=== PATIENT | male | born 1945 | race Caucasian/White ===

== ENCOUNTER 2017-03-04 21:14 | Inpatient (IN) ==
[2017-03-04 21:25] VITALS: BMI 27.6
[2017-03-04] MEDS ORDERED: SODIUM CHLORIDE 1,000 ML IV STA ×2 (21:35)
[2017-03-04] MEDS ORDERED: ZOFRAN 4 MG/2 ML IVP STA (21:36)
--- NOTE | 2017-03-04 22:07 | CT ---
Exam: CT of the chest without contrast History: Cough Technique: [address] of the chest without intravascular contrast FINDINGS: Lung windows show minor nodular infiltrate in the posterior right lower lobe. No consolid ative opacities. Atherosclerotic calcification of the aorta and coronary arteries. The ascending th oracic aorta maximum diameter is 4 cm. No pathologic lymph node enlargement or abundance. No acute chest wall abnormalities are seen. No acute findings of the upper abdomen. Nonobstructing calculus in the right kidney. Impression: 1. Minor tree-in-bud nodular infiltrate in the posterior right lower lobe. No consolidative changes . No acute findings of the chest otherwise. 2. 4 cm ascending thoracic aorta.
--- NOTE | 2017-03-04 22:08 | CT ---
EXAM: CT scan of the abdomen and pelvis without contrast HISTORY: Vomiting TECHNIQUE: Imaging of the abdomen and pelvis was performed without contrast. 3 mm thin axial images and coronal and sagittal reconstructions were provided for interpretation. Comparison CT scan of the abdomen and pelvis dated 02/04/2011. FINDINGS: The liver, spleen, pancreas, adrenal glands and kidneys appear normal. The proximal urete rs are normal size. Small nonobstructing calculi are seen within the calyces of the kidneys. The sm all bowel loops are normal caliber. There is no free air. The appendix was not well seen. No defini te inflammatory changes are seen in the right lower quadrant. No retroperitoneal abnormalities are se en. Gallstones are identified. The helical images obtained through the pelvis demonstrate a normal appearance of the rectum, urinary bladder. There is no free fluid seen within the pelvis. There is a small hernia seen within the lef t inguinal canal containing a loop of small bowel. The hernia sac measures approximately 2.8 cm AP , 3.3 cm transverse, approximately 3.7 cm in height. Patchy nodular opacities are seen in the depende nt right lung base. The lung bases are otherwise clear. No lytic or blastic lesions are seen within the osseous structures. IMPRESSION: No evidence for small bowel obstruction or acute inflammatory change seen within the abd omen and pelvis. Possible early pneumonia seen in the right lung base. Nonobstructing nephrolithiasis seen within the kidneys bilaterally. There is a small hernia seen within the left inguinal canal containing a loop of small bowel. The fin dings are not causing obstruction. Cholelithiasis.
[2017-03-05] MEDS ORDERED: ROCEPHIN 1 GM in SODIUM CHLORIDE 50 ML IV STA (00:27)
--- NOTE | 2017-03-05 00:32 | ED.PDOC ---
General ED Provider: Dr. YANETH COLBERT-ER Chief Complaint: Cough Stated Complaint: i cant keep anything down--im vomitng and having diarrhea and im coughing Time Seen by Physician: 21:15 Mode of Arrival: Walk-In Information Source: Patient, Family Exam Limitations: No limitations Primary Care Provider: YANETH COLBERT Nursing and Triage Documentation Reviewed and Agree: Yes Reviewed sepsis parameters & appropriate labs ordered?: Yes System Inflammatory Response Syndrome: Not Applicable Sepsis Protocol: For patient's 13 years and over: Temp is 96.8 and below OR 101 and greater Pulse >90 BPM Resp >20/minute Acutely Altered Mental Status Are patient's symptoms suggestive of a new infection, such as: -Pneumonia -Skin, Soft Tissue -Endocarditis -UTI -Bone, Joint Infection -Implantable Device -Acute Abdominal Infection -Wound Infection -Meningitis -Blood Stream Catheter Infection -Unknown Respiratory Complaint Exam - Respiratory Complaint/Exam Onset/Duration: im coughing Symptoms Are: Still present Timing: Intermittent Initial Severity: Mild Current Severity: Moderate Location: Chest Character: Reports: Non-productive cough Aggravating: Reports: URI Associated Signs and Symptoms: Reports: Fever, URI, Nasal congestion, Decreased oral intake, Increased thirst. Denies: Rapid breathing, Dyspnea, Chills, Chest pain, Pleuritic chest pain, Wheezing, Hemoptysis, Dizziness, Calf pain, Calf swelling, Edema, Hoarseness, Sinus discomfort, Vomiting, Sore throat, Weight loss, Increased appetite, Increased urination History of Healthcare-Acquired Pneumonia: Admit w/in last 30 days Status Asthmaticus Risk Factors: Reports: None Home Oxygen Use: No Recent Stress Test: No Recent Echo/LV Function: No Current Antibiotic Use: No Current Asthma Medication Use: No Respiratory Distress: None Inadequate Respiratory Effort: No Dysphagia Present: No Stridor Present: No JVD Present: No Accessory Muscle Use: No Retractions: Not Present Diminished Breath Sounds: No Sinus Tenderness: None Grunting Respirations: No Kussmaul Respirations: No Differential Diagnoses: Pneumonia, Influenza, Other Non-Traumatic Chest Pain Syncope: EKG Performed Review of Systems - Review Of Systems Constitutional: Reports: Chills, Fever, Weakness Eyes: Reports: No symptoms Ears, Nose, Mouth, Throat: Reports: No symptoms Respiratory: Reports: Cough Cardiac: Reports: No symptoms GI: Reports: Diarrhea, Nausea, Vomiting : Reports: No symptoms Musculoskeletal: Reports: No symptoms Skin: Reports: No symptoms Neurological: Reports: No symptoms Endocrine: Reports: No symptoms Hematologic/Lymphatic: Reports: No symptoms All Other Systems: Reviewed and Negative Past Medical History - Past Medical History Previously Healthy: Yes Endocrine: Reports: DM 2, Dyslipidemia Cardiovascular: Reports: Hypertension Respiratory: Reports: None Hematological: Reports: None Gastrointestinal: Reports: None Genitourinary: Reports: None Neuro/Psych: Reports: None Musculoskeletal: Reports: None Cancer: Reports: None - Surgical History General Surgical History: Reports: Other ( repair as child.) - Family History Family History: Reports: None - Social History Smoking Status: Never smoker Hx Substance Use: No Alcohol Screening: Occasionally - Immunizations Tetanus Shot up to Date: Yes Physical Exam - Physical Exam Appearance: Well-appearing, No pain distress, Well-nourished Eyes: SIERRA, EOMI, Conjunctiva clear ENT: Rhinorrhea Neck: Supple Respiratory: Airway patent Cardiovascular: RRR, Pulses normal, No rub, No murmur GI/: Soft Musculoskeletal: Normal strength, ROM intact, No edema, No calf tenderness Skin: Warm Neurological: Sensation intact, Motor intact, Reflexes intact, Cranial nerves intact, Alert, Oriented Psychiatric: Affect appropriate, Mood appropriate Interpretation - Radiology Interpretation Radiology Interpretation By: Radiologist Radiology Results: Positive Exam Interpreted: CT Scan - EKG Interpretation Time of EKG #1: 00:33 Rate: Tachy Rhythm: Sinus Ectopy: None [place]: NL ST Segment: Normal Interpretation: nsr Re-Evaluation - Re-Evaluation Time of Re-Evaluation: 00:34 Status: Unchanged Vital Signs Stable: Yes Pain Level: 3 Appearance: NAD Lungs: Clear Skin: Warm and Dry Neuro: Alert and Oriented X3 CV: RRR Physician Notification - Case Discussed Physician Notified: dr sunshine Time of Notification: 02:04 Critical Care Note - Critical Care Note Total Time (mins): 0 Course - Course Hematology/Chemistry: 03/04/17 21:55 03/04/17 21:55 Orders, Labs, Meds: Lab Review 03/04/17 03/04/17 03/04/17 21:34 21:35 21:55 WBC 7.23 RBC 4.11 L Hgb 13.2 L Hct 38.8 L MCV 94.4 H MCH 32.1 H MCHC 34.0 RDW Coeff of Hany 13.3 Plt Count 142 Immature Gran % (Auto) 0.1 Neut % (Auto) 89.8 Lymph % (Auto) 3.7 L Vent[place] % (Auto) 4.3 Eos % (Auto) 1.5 Baso % (Auto) 0.6 Immature Gran # (Auto) 0.0 Neut # 6.5 Lymph # 0.3 L [place] # 0.3 L Eos # 0.1 Baso # 0.0 Puncture Site Lb O2 Saturation 95.0 ABG pH 7.375 ABG pCO2 36.2 ABG pO2 76.0 L ABG HCO3 21.2 L ABG Total CO2 22 ABG Base Excess -4 L Juan Luis Test + FiO2 % 21.0 Sodium Potassium Chloride Carbon Dioxide Anion Gap BUN Creatinine Estimated GFR (MDRD) BUN/Creatinine Ratio Glucose Calcium Total Bilirubin AST ALT Alkaline Phosphatase Total Protein Albumin Globulin Albumin/Globulin Ratio Urine Color Urine Clarity Urine pH Ur Specific Hext Urine Protein Urine Glucose (UA) Urine Ketones Urine Blood Urine Nitrite Urine Bilirubin Urine Urobilinogen Ur Leukocyte Esterase Influenza A (Rapid) Negative by naat Influenza B (Rapid) Negative by naat 03/04/17 03/04/17 21:55 23:57 WBC RBC Hgb Hct MCV MCH MCHC RDW Coeff of Hany Plt Count Immature Gran % (Auto) Neut % (Auto) Lymph % (Auto) Ventura % (Auto) Eos % (Auto) Baso % (Auto) Immature Gran # (Auto) Neut # Lymph # Ventura # Eos # Baso # Puncture Site O2 Saturation ABG pH ABG pCO2 ABG pO2 ABG HCO3 ABG Total CO2 ABG Base Excess Juan Luis Test FiO2 % Sodium 143 Potassium 4.1 Chloride 110 H Carbon Dioxide 23 Anion Gap 14.1 BUN 18 Creatinine 1.01 Estimated GFR (MDRD) 72.00 BUN/Creatinine Ratio 17.82 Glucose 191 H Calcium 9.1 Total Bilirubin 0.7 AST 20 ALT 25 Alkaline Phosphatase 68 Total Protein 7.4 Albumin 3.7 Globulin 3.7 Albumin/Globulin Ratio 1.00 Urine Color Yellow Urine Clarity Clear Urine pH 6.0 Ur Specific Hext 1.020 Urine Protein Negative Urine Glucose (UA) Negative Urine Ketones Trace Urine Blood Negative Urine Nitrite Negative Urine Bilirubin Negative Urine Urobilinogen 0.2 Ur Leukocyte Esterase Negative Influenza A (Rapid) Influenza B (Rapid) Orders Category Date Time Status ABG DRAW REQUEST Stat CARDIO 03/04/17 21:35 Completed EKG-(ED ONLY) Stat CARDIO 03/04/17 21:34 Completed ED IV/MEDIPORT/POWERPORT .ONCE EMERGENCY 03/04/17 21:35 Active ABG Stat LAB 03/04/17 21:34 Completed BLOOD CULTURE (ED ONLY) Stat LAB 03/04/17 21:55 Received CBC W/ AUTO DIFF Stat LAB 03/04/17 21:55 Completed COMPREHENSIVE METABOLIC PANEL Stat LAB 03/04/17 21:55 Completed FLU A/B MOLECULAR Stat LAB 03/04/17 21:35 Completed MOLECULAR GROUP A STREP Stat LAB 03/04/17 21:35 Completed URINALYSIS C & S IF INDICATED Stat LAB 03/04/17 23:57 Completed 0.9 % Sodium Chloride [Saline Flush] MEDS 03/04/17 21:35 Ordered 1 syr IVF PRN PRN Ceftriaxone Sodium [Rocephin] MEDS 03/05/17 00:59 Discontinued 1 gm .ROUTE .STK-MED ONE Ceftriaxone Sodium [Rocephin] 1 gm MEDS 03/05/17 00:27 Discontinued 0.9 % Sodium Chloride [Sodium Chloride] 50 ml IV ONCE Hydrocodone Bit/Acetaminophen [Newell 5-325] MEDS 03/05/17 01:00 Discontinued 1 tab PO ONCE STA Ondansetron HCl/Pf [Zofran 4 mg/2 ml] MEDS 03/04/17 21:36 Discontinued 4 mg IVP ONCE STA Sodium Chloride 0.9% [Sodium Chloride] 1,000 ml MEDS 03/05/17 00:56 Active IV 50 mls/hr Sodium Chloride 0.9% [Sodium Chloride] 1,000 ml MEDS 03/04/17 21:35 Discontinued IV BOLUS Sodium Chloride 0.9% [Sodium Chloride] 1,000 ml MEDS 03/04/17 21:[address] ABDOMEN/PELVIS WO CONTRAST Stat RADS 03/04/17 21:[address] CHEST W/O CONTRAST Stat RADS 03/04/17 21:36 Completed Medications Generic Name Dose Route Start Last Admin Trade Name Freq PRN Reason Stop Dose Admin Sodium Chloride 1,000 mls @ 50 mls/hr 03/05/17 00:56 03/05/17 01:04 Sodium Chloride IV 03/05/17 20:55 50 mls/hr .Q20H STA Administration Sodium Chloride 1 syr 03/04/17 21:35 03/04/17 22:16 Saline Flush IVF 1 syr PRN PRN Administration To flush IV Discontinued Medications Generic Name Dose Route Start Last Admin Trade Name Fausto PRN Reason Stop Dose Admin Acetaminophen/Hydrocodone Bitart 1 tab 03/05/17 01:00 03/05/17 01:10 Newell 5-325 PO 03/05/17 01:01 1 tab ONCE STA Administration Sodium Chloride 1,000 mls @ 1,000 mls/hr 03/04/17 21:35 03/04/17 23:30 Sodium Chloride IV 03/04/17 22:34 1,000 mls/hr BOLUS STA Administration Sodium Chloride 1,000 mls @ 1,000 mls/hr 03/04/17 21:35 03/04/17 22:16 Sodium Chloride IV 03/04/17 22:34 1,000 mls/hr BOLUS STA Administration Ceftriaxone Sodium 1 gm/ 50 mls @ 75 mls/hr 03/05/17 00:27 03/05/17 01:06 Sodium Chloride IV 03/05/17 01:06 75 mls/hr ONCE STA Administration Ondansetron HCl 4 mg 03/04/17 21:36 03/04/17 22:17 Zofran 4 Mg/2 Ml IVP 03/04/17 21:37 4 mg ONCE STA Administration Vital Signs: Temp Pulse Resp BP Pulse Ox 03/04/17 23:54 99.6 F 03/04/17 21:14 100.4 F H 117 H 20 132/77 94 L Departure - Departure Time of Disposition: 00:34 Disposition: ADMITTED INPATIENT Discharge Problem: Dehydration Pneumonia Qualifiers: Pneumonia type: due to unspecified organism Laterality: right Lung location: lower lobe of lung Qualified Code(s): J18.1 - Lobar pneumonia, unspecified organism Diarrhea Qualifiers: Diarrhea type: unspecified type Qualified Code(s): R19.7 - Diarrhea, unspecified Instructions: Pneumonitis (ED) Condition: Stable Pt referred to PMD for follow-up: Yes IPMP verified?: No Allergies/Adverse Reactions: Allergies No Known Allergies Allergy (Verified 03/04/17 21:24) Home Medications: Ambulatory Orders 1 [Unobtainable] 03/04/17 Transfer Form Completed: Yes Disposition Discussed With: Patient, Family
[2017-03-05] MEDS ORDERED: SODIUM CHLORIDE 1,000 ML IV STA (00:56)
[2017-03-05] MEDS ORDERED: ROCEPHIN ONE (00:59)
[2017-03-05] MEDS ORDERED: NORCO 5-325 PO STA (01:00)
[2017-03-05] MEDS ORDERED: HUMULIN R SUBCUT PRN (02:13)
[2017-03-05] MEDS ORDERED: ZOFRAN 4 MG/2 ML IVP PRN (02:14)
[2017-03-05] MEDS ORDERED: VANCOMYCIN 1,000 MG in SODIUM CHLORIDE 200 ML IV SCH (02:30)
[2017-03-05] MEDS ORDERED: XOPENEX 0.63 MG NEB SCH (03:00)
[2017-03-05] MEDS: XOPENEX 0.63 MG NEB SCH ×3 (03:31→21:00)
[2017-03-05] MEDS: FLAGYL PO SCH ×4 (03:41→20:53)
[2017-03-05] MEDS: SODIUM CHLORIDE 1,000 ML IV SCH ×2 (03:42→15:19)
[2017-03-05] MEDS: HUMULIN R SUBCUT PRN ×3 (05:38→17:30)
[2017-03-05] MEDS: LOVENOX SUBCUT SCH (08:53)
[2017-03-05] MEDS: NORCO 7.5-325 PO PRN ×2 (09:00→17:58)
[2017-03-05] MEDS ORDERED: NON-FORMULARY MEDICATION (Metformin Hcl [Metformin Hcl] 1,000 MG) PO SCH (17:00)
[2017-03-05] MEDS: FLOMAX PO SCH (17:22)
[2017-03-05] MEDS: GLUCOPHAGE PO SCH (17:22)
[2017-03-05] MEDS: VANCOMYCIN 1 GM in SODIUM CHLORIDE 250 ML IV SCH (17:51)
[2017-03-05] MEDS ORDERED: POTASSIUM CHLORIDE 20 MEQ VIAL-ADDITIVE ONLY 20 MEQ, INFUVITE ADULT 10 ML in SODIUM CHL... IV SCH (20:00)
[2017-03-05] MEDS ORDERED: OXYCODONE PO PRN (20:35)
[2017-03-05] MEDS: ROCEPHIN 1 GM in SODIUM CHLORIDE 50 ML IV SCH (20:48)
[2017-03-05] MEDS: TIMOPTIC 0.5% OPTH OP SCH (20:49)
[2017-03-05] MEDS: BRIMONIDINE TARTRATE OP SCH (20:49)
[2017-03-05] MEDS: CRESTOR PO SCH (20:52)
[2017-03-05] MEDS ORDERED: ROSUVASTATIN CALCIUM 20 MG PO SCH (21:00)
[2017-03-05] MEDS: NEURONTIN PO SCH (22:05)
[2017-03-05] MEDS: LANTUS SUBCUT SCH (22:05)
[2017-03-05] MEDS ORDERED: POTASSIUM CHLORIDE 20 MEQ VIAL-ADDITIVE ONLY IV ONE (23:23)
[2017-03-05] MEDS ORDERED: INFUVITE ADULT IV ONE (23:24)
[2017-03-06] MEDS: XOPENEX 0.63 MG NEB SCH ×3 (04:50→20:00)
[2017-03-06] MEDS: VANCOMYCIN 1 GM in SODIUM CHLORIDE 250 ML IV SCH ×2 (05:38→17:08)
[2017-03-06] MEDS: SYNTHROID PO SCH (05:38)
[2017-03-06] MEDS: FLAGYL PO SCH ×3 (08:29→20:16)
[2017-03-06] MEDS: GLUCOPHAGE PO SCH ×2 (08:30→17:07)
[2017-03-06] MEDS: ASPIRIN CHEWABLE PO SCH (08:30)
[2017-03-06] MEDS: ZOLOFT PO SCH (08:30)
[2017-03-06] MEDS: COZAAR PO SCH (08:30)
[2017-03-06] MEDS: BRIMONIDINE TARTRATE OP SCH ×2 (08:31→20:15)
[2017-03-06] MEDS: INFUVITE ADULT 10 ML in SODIUM CHLORIDE 0.45%-KCL 20 MEQ 1,000 ML IV SCH ×2 (08:32→14:13)
[2017-03-06] MEDS: FLONASE NAS SCH (08:32)
[2017-03-06] MEDS: TIMOPTIC 0.5% OPTH OP SCH ×2 (08:32→20:15)
[2017-03-06] MEDS: NEURONTIN PO SCH ×3 (08:34→20:15)
[2017-03-06] MEDS: LOVENOX SUBCUT SCH (08:34)
[2017-03-06] MEDS ORDERED: NON-FORMULARY MEDICATION (Losartan Potassium 25 MG) PO SCH (09:00)
[2017-03-06] MEDS ORDERED: SERTRALINE HCL 50 MG PO SCH (09:00)
[2017-03-06] MEDS: HUMULIN R SUBCUT PRN ×2 (12:03→17:05)
[2017-03-06] MEDS: FLOMAX PO SCH (17:07)
[2017-03-06] MEDS: LANTUS SUBCUT SCH (20:14)
[2017-03-06] MEDS: CRESTOR PO SCH (20:15)
[2017-03-06] MEDS: ROCEPHIN 1 GM in SODIUM CHLORIDE 50 ML IV SCH (20:18)
[2017-03-07] MEDS: VANCOMYCIN 1 GM in SODIUM CHLORIDE 250 ML IV SCH ×2 (05:33→18:46)
[2017-03-07] MEDS: SYNTHROID PO SCH (05:33)
[2017-03-07] MEDS: HUMULIN R SUBCUT PRN ×3 (05:47→20:07)
[2017-03-07] MEDS: XOPENEX 0.63 MG NEB SCH ×3 (06:01→20:53)
--- NOTE | 2017-03-07 08:20 | HP ---
CHIEF COMPLAINT: Cough, nausea, vomiting and diarrhea SOURCE OF HISTORY: Patient and notes from the emergency room HISTORY OF PRESENT ILLNESS: The patient about three days prior to presentation to the emergency room had been experiencing. This was later followed by nausea and vomiting as well as diarrhea. He also had a low grade temperature with chills, shaking chills not just chilly. He hadn't been drinking enough and feels dehydrated because of the vomiting and diarrhea and claimed that he could not keep anything down. The patient was discharged from [facility] 02/14/17 because of viral influenza A. He was kept in the hospital for 4 days. The diagnosis then was bronchial pneumonia plus influenza A. Chest x-ray showed some minimal tree-in- bud nodular infiltrate right lower lobe described as minor. He was then admitted to the hospital for further treatment. PAST PERSONAL HISTORY: Diabetes mellitus questionable type. This patient is taking oral medications as well as insulin. The patient has type probably 1 1/2 or 3 (JONI). History of myocardial infarction Cardiac catheterization with 3 stents applied History of depression Anxiety PTSD Pneumonia Pyloristenosis, operated as an . 5 stents that were deployed I don't know whether just one occasion FAMILY HISTORY: Unknown SOCIAL HISTORY: The patient is retired from the arm forces services and goes to the [facility] for medical care. The [facility] at this time is on overflow. He is . Never did smoker. MEDICATIONS: Still unknown. We are giving patient sliding scale with regular insulin at this time until we get hold of the medications. He did not bring his medication and we are trying to retrieve it. Trying to get to the portal however the [place] the password is in accepted by the Portal. ALLERGIES: No known drug allergies. REVIEW OF SYSTEMS: CONSTITUTIONAL: Appearance is good. Episode of chills with some weakness because of the nausea and vomiting plus the fever YARN MAN: No headache. No syncopal episode, no seizure disorder or problem VISUAL: Denies any blurred vision, double vision or transient loss of vision. AUDITORY: Hearing is adequate. Denies any tinnitus, pain or drainage. RESPIRATORY: The patient has cough no cyanosis and no significant respiratory problems except the cough. He is not dyspneic or tachypneic and no cyanosis. CARDIOVASCULAR: The patient denied any chest pain on admission. He did have a transient pain in the chest last night it is in the lower area at the costal margin across the chest. This was not accompanied by any symptoms such as diaphoresis or exacerbated weakness. GASTROINTESTINAL: The patient is not able to keep any thing down because of the nausea, vomiting and diarrhea. GENITOURINARY: Denies any pain or frequency of urination. MUSCULOSKELETAL: The patient does not have any significant joint pains ENDOCRINE: The patient does not have polyuria or polydipsia. He is diabetic and probably 1 1/2 or 3. INTEGUMENT: Denies any rash or pleuritis HEMATOLOGIC: No history of prolonged bleeding PSYCHIATRIC: Affect appears to be normal. The patient does have a diagnosis of PTSD probably stemming from the service. PHYSICAL EXAMINATION: GENERAL: 72 year old male admitted to the hospital by the emergency room because of cough, nausea, vomiting and diarrhea with chills. VITAL SIGNS: Temperature 100.4, pulse 117, blood pressure 132/77, respiratory rate 20 and oxygen saturation 94% at room air. 182 pounds. HEAD: Unremarkably, scalp not dermitis. FACE: Symmetrical and equal with no facial weakness. No remarkably tenderness to pressure. Palpation in the frontally maxillary sinus areas. EYES: Pupils equal/reactive to light. Conjunctivae not pale. Sclerae not icteric. MOUTH: Unremarkably THROAT: No inflammation, tumors or exudate. NECK: No masses. No bruit. No tenderness. No rigidity. CHEST: Symmetrical and equal with good expansion LUNGS: Breath sounds are heard in both sides and clear. HEART: Audible and regular with good tones. No murmurs. ABDOMEN: Flat, soft with no remarkably tenderness. No guarding, no masses no bruit. EXTERNAL GENITALIA: Not examined RECTAL: Not performed LOWER EXTREMITIES: Symmetrical and equal with no significant edema. Anterior tibials are palpable, posterior tibials are not found UPPER EXTREMITIES: Symmetrical and equal ASSESSMENT: 1. Acute gastroenteritis probably viral 2. Right lower lobe infiltrate maybe pneumonia 3. History of influenza A, recent discharge 02/14/17 from [facility] 4. Diabetes mellitus type 1 1/2 5. PTSD 6. Depression 7. Coronary artery disease post [facility] with stents x5 8. Peripheral arterial disease 9. Absent posterior tibials The emergency room felt that maybe he has Clostridium difficile problems. This patient was given Flagyl as well as Vancomycin. The patient had not had a bowel movement since admission from the emergency room. I don't know if this patient does have clostridium problems or maybe just a plan acute gastroenteritis probably viral. MTDD
[2017-03-07] MEDS: FLONASE NAS SCH (08:53)
[2017-03-07] MEDS: BRIMONIDINE TARTRATE OP SCH ×2 (08:53→20:07)
[2017-03-07] MEDS: TIMOPTIC 0.5% OPTH OP SCH ×2 (08:53→20:06)
[2017-03-07] MEDS: LOVENOX SUBCUT SCH (08:53)
[2017-03-07] MEDS: FLAGYL PO SCH ×2 (08:55→15:11)
[2017-03-07] MEDS: GLUCOPHAGE PO SCH ×2 (08:55→16:47)
[2017-03-07] MEDS: ASPIRIN CHEWABLE PO SCH (08:55)
[2017-03-07] MEDS: COZAAR PO SCH (08:56)
[2017-03-07] MEDS: NEURONTIN PO SCH ×3 (08:56→20:06)
[2017-03-07] MEDS: ZOLOFT PO SCH (08:56)
[2017-03-07] MEDS: FLOMAX PO SCH (16:47)
[2017-03-07] MEDS: INFUVITE ADULT 10 ML in SODIUM CHLORIDE 0.45%-KCL 20 MEQ 1,000 ML IV SCH ×2 (18:45→18:46)
[2017-03-07] MEDS: OMNICEF PO SCH (20:06)
[2017-03-07] MEDS: CRESTOR PO SCH (20:06)
[2017-03-07] MEDS: LANTUS SUBCUT SCH (20:07)
[2017-03-07] MEDS ORDERED: AVELOX PO SCH (21:00)
[2017-03-08] MEDS: XOPENEX 0.63 MG NEB SCH (05:14)
[2017-03-08] MEDS: SYNTHROID PO SCH (05:45)
[2017-03-08] MEDS: BRIMONIDINE TARTRATE OP SCH (08:23)
[2017-03-08] MEDS: TIMOPTIC 0.5% OPTH OP SCH (08:23)
[2017-03-08] MEDS: FLONASE NAS SCH (08:23)
[2017-03-08] MEDS: GLUCOPHAGE PO SCH (08:24)
[2017-03-08] MEDS: NEURONTIN PO SCH (08:24)
[2017-03-08] MEDS: ZOLOFT PO SCH (08:24)
[2017-03-08] MEDS: OMNICEF PO SCH (08:24)
[2017-03-08] MEDS: ASPIRIN CHEWABLE PO SCH (08:24)
[2017-03-08] MEDS: COZAAR PO SCH (08:25)
[2017-03-08] MEDS: LOVENOX SUBCUT SCH (08:25)
[2017-03-08 09:49] VITALS: BP 105/56; TEMP 98
--- NOTE | 2017-03-08 11:41 | DI ---
Exam: Two x-rays of the chest. Comparison: 01/15/2009. CT chest performed 03/04/2017. Reason for exam: Follow-up pneumonia. FINDINGS: No pneumothorax, pleural effusion, or focal consolidation. The cardiac silhouette is not enlarged. The imaged osseous structures appear grossly unremarkable without acute fracture. The car diac silhouette is unchanged. Impression: No acute cardiopulmonary process.
[2017-03-08] MEDS: HUMULIN R SUBCUT PRN (12:05)
[2017-03-08] MEDS ORDERED: AVELOX PO SCH (21:00)
--- NOTE | 2017-03-13 08:56 | DS ---
PATIENT IDENTIFICATION: 72 year old male admitted to the hospital via the emergency room. The patient had cough about three days prior to admission and developed nausea, vomiting and diarrhea with some chills. He felt that he was dehydrated. This patient was recently discharged from the [facility] 02/14/2017 because of pneumonia and influenza A. The patient had a chest CT showing a minor tree-in-bud nodular infiltrate in the posterior right lower lobe. No consolidation changes and no acute findings of the chest otherwise. The ascending aorta was 4 cm, but not aneurysmal. He also had a CT scan of the abdomen and pelvis showing no significant abnormalities. The patient was given Flagyl 250 mg p.o. every 8 hours, Ceftriaxone IV 1 gram at bedtime and Vancomycin every 12 hours. He was continued on his previous home medications. HOSPITAL COURSE: The patient on admission had a low grade temperature of 100.5 , heart rate of 117, blood pressure 132/77, respiratory rate 20, oxygen saturation 94. The patient's general appearance was good. No cyanosis and not tachypneic, nor dyspneic. LUNGS: Clear to auscultation on both sides. No rales of wheezing HEART: Normal sinus rhythm. No murmurs. ABDOMEN: Soft with no remarkable tenderness. No muscular guarding. Bowel sounds are active. RECTAL: No rectal examination was done. The patient was felt to have a gastroenteritis, probably viral. Possibly clostridium difficile colitis, since he was in the hospital about three weeks. He was given antibiotics. The patient was given a bolus of normal saline and then maintained on an IV. The patient continued to improve and had no bowel movement, except once on the day of admission. The diarrhea has resolved. He no longer had any nausea or vomiting. The patient's CBC, however, showed declining WBC, RBC and hemoglobin and hematocrit. The platelet count also was decreasing and the lowest on the day of discharge was 113,000. WBC started to rise back towards normal and the hemoglobin and hematocrit remained low and lower than yesterday. The patient yesterday was very eager to go home, however I talked him into staying another day or so to have a better idea of why this patient had developed leukopenia and thrombocytopenia, as well as increasing anemia. The patient agreed and the antibiotic medications were discontinued. The Flagyl was discontinued since the Clostridium difficile was negative and the patient no longer has the diarrhea, nor the nausea or vomiting. Vancomycin also was discontinued since the patient does not want any IV access. The patient was given Omnicef 300 mg capsule every 12 hours to replace the Rocephin. The patient also was given Avelox rather than Levaquin. There are two medications that the patient had received which might produce a lower thrombocyte count. The patient's temperature had remained normal since admission showing a temperature of 100.4 and 99.6. The pulse has gradually returned to normal and the blood pressure was stable. Oxygen saturation was fluctuating between 96 to 98 without oxygen. The patient on the day of discharge is alert, ambulatory with movement of all extremities. He is oriented to time, place and person and situation. No venous distention in supine posture. LUNGS: Breath sounds are heard in both sides. Clear to auscultation. No rales or wheezing. HEART: Audible and regular with good tones. Normal sinus rhythm. No murmurs. ABDOMEN: Protuberant, soft with no remarkable tenderness. No masses. No bruits. Viral titers for Influenza A and B were 1:64 and 1:16 respectively. Blood cultures were negative after three days. I did discuss the results of the CBC with the daughter and patient. I did tell them that the white count is starting to climb up back towards normal. The anemia is persistent and the thrombocyte count is still going further down and it was 117 yesterday and the day before was 122 and now is down to 113. The medications can possibly lower the platelet count were discontinued. The patient's diabetes while in the hospital was fairly well controlled. The patient denied any use of alcohol. Anemia seemed to be related to B complex vitamin deficiency. I did advise the patient, as well as the daughter, that he should be seen by the ID doctor this coming Sunday and before if there is a need or to the emergency room. He is prescribed Avelox 400 mg tablet #5 to be taking daily beginning tomorrow at 9 o' clock. FINAL DIAGNOSES: 1. ACUTE GASTROENTERITIS, PROBABLY VIRAL, RESOLVED. 2. RIGHT LOWER LOBE PNEUMONIA MINOT INFILTRATE, RESOLVED. 3. DIABETES MELLITUS TYPE I AND A HALF 4. MODERATE ANEMIA, PROBABLY B COMPLEX VITAMIN DEFICIENCY, MCV AND MCH ELEVATED. 5. LEUKOPENIA AND THROMBOCYTOPENIA, MAY BE RELATED TO THE VIRAL PROBLEMS OR TO THE MEDICATION, IN PARTICULAR ROCEPHIN AND VANCOMYCIN CAN CAUSE SOME THROMBOCYTOPENIA. 6. CORONARY ARTERY DISEASE, STATUS POST CARDIAC CATHETERIZATION AND STENT 7. HISTORY OF PTSD 8. HISTORY OF DEPRESSION 9. HISTORY OF PYLORIC STENOSIS, CONGENITAL 10. HISTORY OF MYOCARDIAL INFARCTION 11. HISTORY OF PNEUMONIA, RECENT. CONFINED AT THE [facility] AND DISCHARGED FEBRUARY 14, 2017. 12. CHOLELITHIASIS MTDD
--- NOTE | 2017-03-13 09:07 | PN ---
DATE OF VISIT: 03/05/17 VITAL SIGNS: At 6 p.m. showed a temperature of 98, pulse 78, blood pressure 128 /76, respiratory rate 22, oxygen saturation 96 at room air. The patient denies any pain and claimed to have one bowel movement which was loose. He denies any nausea or any vomiting and no abdominal pain. He ate dinner, about 75%. He is receiving Vancomycin 1 gram every 12 hours IV and Rocephin 1 gram daily. I could not see the order, however, as daily. The patient also was receiving Lovenox 40 mg subcutaneously. He is also receiving Flagyl 250 mg p.o. three times a day. The Procalcitonin is 0.24, minimal is 0.5. Lactic acid normal at 7.7. We will discontinue the Hydrocodone/APAP and change it to another medication without Tylenol. CONDITION: Stable. We were able to collect a specimen for the clostridium difficile. [facility]
--- NOTE | 2017-03-13 09:14 | PN ---
DATE OF VISIT: 03/07/17 The patient was eager to go home. The patient had been afebrile and had not had any nausea or vomiting, including diarrhea. He denied any abdominal pain. I did talk to him in the presence of his daughter. I did tell him that his white count is going below normal and he always had the anemia before he came into this hospital, but with hydration the anemia is more pronounced. His platelet count is also coming down and it was normal on admission at 148 and is down now to 117. I did tell him that the level at this time is not of any clinical concern, but I would like to know what is causing the problem. It may be related to the antibiotic and we will review that. I told him that I could not get a CT scan today, 03/07/17, since I don't think it would make any difference or any changes that could be visualized from three days ago. LUNGS: Clear to auscultation. HEART: Normal sinus rhythm. I did tell Mr. Garcia that I did not feel comfortable with the decreasing WBC, hemoglobin and platelet count. [facility]
== END 2017-03-08 14:34 | disposition home or self-care (01) | DRG 391 ==
LOC: ED 21:14 → MEDSURG A 03-05 02:22
PROVIDERS: ADMIT General Practice; ATTEND General Practice
DX: A08.4 Viral intestinal infection, unspecified (principal); J18.1 Lobar pneumonia, unspecified organism; E86.0 Dehydration; R11.2 Nausea with vomiting, unspecified; R05 Cough; R19.7 Diarrhea, unspecified; R50.9 Fever, unspecified; E11.9 Type 2 diabetes mellitus without complications; D72.819 Decreased white blood cell count, unspecified; D69.6 Thrombocytopenia, unspecified; D64.9 Anemia, unspecified; I25.10 Atherosclerotic heart disease of native coronary artery without angina pectoris; K80.20 Calculus of gallbladder without cholecystitis without obstruction; E53.9 Vitamin B deficiency, unspecified; I25.2 Old myocardial infarction; F43.12 Post-traumatic stress disorder, chronic; F32.9 Major depressive disorder, single episode, unspecified; Q40.0 Congenital hypertrophic pyloric stenosis; Z87.01 Personal history of pneumonia (recurrent); Z95.5 Presence of coronary angioplasty implant and graft; Z79.899 Other long term (current) drug therapy
CPT/HCPCS: 36415; 80053; 81001; 82803; 82962; 83036; 83519; 83525; 83605; 84145; 84681; 85025; 85651; 86141; 86710; 87040; 87081; 87493; 87502; 87651; 93005; 93010; 94640; 96365; 96375; 99284